=== PATIENT | male | born 1995 | race Hispanic/Latino ===

== ENCOUNTER 2023-11-28 09:25 | Emergency (ER) | payer OTHER ==
[~2023-11-28] VITALS: Ht 172.7 cm; Wt 93.0 kg
[2023-11-28 10:47] LABS: BASOPHILS # (AUTO) 0.05 K/uL (0.00-0.20); BASOPHILS % (AUTO) 0.5 % (0.0-5.0); EOSINOPHILS % (AUTO) 6.7 % (0.0-8.0); HEMATOCRIT 49.4 % (42-54); IMMATURE GRANULOCYTE ABSOLUTE 0.03 K/uL (0-1); LYMPHOCYTES # (AUTO) 1.3 K/uL (1.0-4.8); LYMPHOCYTES % (AUTO) 12.6 % (21.0-51.0); MEAN CORPUSCULAR HGB CONC 34.2 g/dL (32.0-36.0); MEAN CORPUSCULAR VOLUME 84.9 fL (79-99); MONOCYTES # (AUTO) 0.8 K/uL (0.1-1.0); MONOCYTES % (AUTO) 7.6 % (3.0-13.0); NEUTROPHILS # (AUTO) 7.6 K/uL (1.8-7.7); NEUTROPHILS % (AUTO) 72.3 % (40.0-77.0); PLATELET COUNT (AUTO) 252 K/uL (130-400); RED BLOOD CELL COUNT(AUTO) 5.82 MIL/uL (4.50-6.20); RED CELL DISTRIBUTION WIDTH 12.8 % (11.0-15.5); WHITE BLOOD COUNT (AUTO) 10.5 K/uL (4.8-10.8)
[2023-11-28 10:57] LABS: CREATININE 1.2 mg/dL (0.5-1.3); POTASSIUM 4.5 mmol/L (3.5-5.1)
[2023-11-28] MEDS ORDERED: CLIN-141 PO (11:18)
[2023-11-28] MEDS ORDERED: IBUP-1556 PO (11:18)
[2023-11-28 11:26] VITALS: BP 126/93; PULSE 79; RESP 20; TEMP 98.4; O2SAT 98
[2023-11-28] MEDS: LIDOCAINE HCL 1% 20 ML VIAL INJ SCH (11:41)
[2023-11-28] MEDS: CLINDAMYCIN 150 MG CAP PO ONE (11:41)
[2023-11-28] MEDS: ibuPROFEN 800 MG TAB PO ONE (11:41)
== END 2023-11-28 12:08 | disposition home or self-care (01) ==
LOC: EDH 09:25
DX: L73.8 Other specified follicular disorders (principal)
CPT/HCPCS: 10060; 36415; 80048; 85025; 87070